=== PATIENT | female | born 1960 | race Hispanic/Latino ===

== ENCOUNTER 2022-02-02 14:58 | Emergency (ER) | payer OTHER, SELFPAY ==
[2022-02-02 15:08] VITALS: BP 108/51; PULSE 86; RESP 16; TEMP 36.8; O2SAT 99
--- NOTE | 2022-02-02 15:08 | ED.URI ---
HPI - URI/Sore Throat General Chief Complaint: Upper Respiratory Infection Stated Complaint: sore throat Time Seen by Provider: 02/02/22 15:09 Source: patient and RN notes reviewed Mode of arrival: ambulatory Limitations: no limitations History of Present Illness HPI Narrative: 61 y/o female presented for c/o sore throat x2-3 days. Endorses cough worse at night. Denies sinus pain/congestion, n/v/d/f/c. Received covid booster 2 days ago. Denies sick contacts. Hx DM. Not takin anything for symptoms. MD elicited complaint: cough and sore throat Related Data Home Medications Medication Instructions Recorded Confirmed blood sugar diagnostic [OneTouch 02/02/22 02/02/22 Verio test strips] glipizide 10 mg PO DAILY 02/02/22 02/02/22 lancets [OneTouch Delica Plus 02/02/22 02/02/22 Lancet] metformin 1,000 mg PO BID 02/02/22 02/02/22 pioglitazone 15 mg PO DAILY 02/02/22 02/02/22 pravastatin 40 mg PO DAILY 02/02/22 02/02/22 Allergies Allergy/AdvReac Type Severity Reaction Status Date / Time No Known Allergies Allergy Verified 02/02/22 15:00 Review of Systems Review of Systems: CONSTITUTIONAL:denies malaise, chills, sweats, fever EYES: Denies visual changes, redness, or discharge ENT: Reports rhinorrhea, sore throat denies congestion, sinus pain, otalgia, CARDIOVASCULAR: Denies chest pain, palpitations, edema RESPIRATORY: Reports cough, post nasal drainage. Denies dyspnea GASTROINTESTINAL: Denies abdominal pain, nausea, vomiting, diarrhea SKIN: Denies rash or itching MUSCULOSKELETAL: denies myalgia NEUROLOGIC: Denies headache Exam Narrative: GENERAL: Ill-appearing, nontoxic HEAD: Normocephalic EYES: conjunctivae clear ENT: Mucous membranes moist. TM pearly benito with dull light reflex bilaterally; left TM with circular hole; no pain or drainage; no tragal tenderness. Oropharynx erythematous without lesions or exudate, no drooling, no hoarseness, no trismus, uvula midline. No tripod positioning, muffled voice, soft palate or pharyngeal wall bulging NECK: Supple. No lymphadenopathy CHEST: Clear to auscultation, breath sounds equal. No wheezing, rhonchi, rales, or stridor. No respiratory distress, speaks in full sentences. HEART: Regular rate and rhythm. No murmur heard. SKIN: Warm, dry, no rash. NEURO: Alert and oriented x3. PSYCH: Normal mood and affect Course Course Emergency Course: Patient is aware of diagnosis, understands and agrees to treatment plan. Anticipatory guidance given. Patient agrees to follow-up as directed and is aware of reasons to seek care at the emergency department. Portions of this record may have been created with voice recognition software Level of Care: Express Care Visit Vital Signs Vital signs: Vital Signs Temperature 98.3 F 02/02/22 15:08 Pulse Rate 86 02/02/22 15:08 Respiratory Rate 16 02/02/22 15:08 Blood Pressure 108/51 L 02/02/22 15:08 Pulse Oximetry 99 02/02/22 15:08 Temperature 98.3 F 02/02/22 15:08 Pulse Rate 86 02/02/22 15:08 Respiratory Rate 16 02/02/22 15:08 Blood Pressure 108/51 L 02/02/22 15:08 Pulse Oximetry 99 02/02/22 15:08 reviewed MDM - URI/Sore Throat MDM Narrative Medical decision making narrative: strep positive. No apparent tonsillar abscess or soft palate edema. Pt is appropriate for out pt treatment and f/u. Differential Diagnosis Differential diagnosis: Likely upper respiratory infection, sinusitis, viral infection and pharyngitis Lab Data Attestation: I reviewed the patient's lab results. Labs: Strep Screen Positive Group A Strep *(Reference Range: Negative)* Discharge Plan Discharge Clinical Impression: Strep pharyngitis Patient Disposition: Home, Self-Care Condition: Stable Instructions: Antibiotic Form, Strep Throat (ED) Additional Instructions: -Take the medication as prescribed. Throw away the toothbrush after 24hours of antibiotic. -You
== END 2022-02-02 15:36 | disposition home or self-care (01) ==
PROVIDERS: Emergency Provider Nurse Practitioner Family
DX: J02.0 Streptococcal pharyngitis (principal)
CPT/HCPCS: 87880; 99213; G0463

== ENCOUNTER 2024-10-13 14:37 | Emergency (ER) | payer MEDICARE, SELFPAY ==
[2024-10-13 15:05] VITALS: BP 129/66; PULSE 79; RESP 16; TEMP 37.2; O2SAT 99
[2024-10-13 15:08] LABS: EDUAAPPEAR Clear; EDUABILI Negative (Negative); EDUABLOOD 2+ (Negative); EDUACOLOR1 Yellow; EDUAGLUCOSE Negative (Negative); EDUAKETONE Negative (Negative); EDUALEUKO 2+ (Negative); EDUANITRATE Negative (Negative); EDUAPH 5.5; EDUAPROTEIN Negative (Negative); EDUASPGRAVITY 1.005; EDUAUROBILI 0.2
--- NOTE | 2024-10-13 15:24 | ED_ITS ---
HPI - Female Genitourinary General Chief complaint: Urogenital-Female Stated complaint: urinary issue Time Seen by Provider: 10/13/24 15:10 Source: patient Mode of arrival: ambulatory Limitations: no limitations History of Present Illness HPI Narrative: 64-year-old female presents with complaint of urinary frequency, urgency, dysuria for 3 days. Had low back pain yesterday but has resolved. Denies nausea vomiting. Afebrile. All systems reviewed and negative except as noted above. Related Data Home Medications Medication Instructions Recorded Confirmed blood sugar diagnostic (OneTouch 02/02/22 10/13/24 Verio test strips) glipizide 10 mg tablet 10 mg PO DAILY 02/02/22 10/13/24 lancets 33 gauge (OneTouch Delica 02/02/22 10/13/24 Plus Lancet) metformin 1,000 mg tablet 1,000 mg PO BID 02/02/22 10/13/24 pioglitazone 15 mg tablet 15 mg PO DAILY 02/02/22 10/13/24 pravastatin 40 mg tablet 40 mg PO DAILY 02/02/22 10/13/24 Allergies Allergy/AdvReac Type Severity Reaction Status Date / Time No Known Allergies Allergy Verified 10/13/24 14:58 Review of Systems Review of Systems: CONSTITUTIONAL: Denies fever, chills, or sweats. EYES: Denies visual changes, redness, or discharge. ENT: Denies rhinorrhea, congestion, sore throat, or otalgia. CARDIOVASCULAR: Denies chest pain, palpitations, or edema. RESPIRATORY: Denies cough or dyspnea. GASTROINTESTINAL: Denies abdominal pain, nausea, vomiting, or diarrhea. GENITOURINARY: Reports dysuria, frequency, urgency. Denies hematuria. SKIN: Denies rash or itching. MUSCULOSKELETAL: Denies back pain, joint pain, or myalgia. NEUROLOGIC: Denies headache, numbness, or weakness. PSYCHIATRIC: Denies anxiety or depression. All other systems reviewed are negative, except as documented in HPI. PMFSH Comments At time of signature, agree with nursing past medical, surgical, social and family history. There is no relevant family history pertinent to the presenting complaint. Exam Narrative: GENERAL: This is a well-nourished, well-developed patient, in no apparent distress. HEAD: normocephalic, atraumatic. EYES: PERRL. Sclera clear/white. Vision is grossly intact. EARS: External ears normal NOSE: External nose normal NECK: Neck supple, non-tender without lymphadenopathy, masses or thyromegaly. CARDIOVASCULAR: Regular rate and rhythm without murmurs, gallops, or rubs. RESPIRATORY: Clear to auscultation. Breath sounds equal bilaterally. No wheezes, rales, or rhonchi. SKIN: warm, Dry, intact with no suspicious lesions or rash, good texture and turgor. NEURO: awake, alert, and oriented to person, place and time. There were no obvious focal neurologic abnormalities. EXTREMITIES: No joint tenderness, effusion, or edema noted. Course Course Level of Care: Express Care Visit Vital Signs Vital signs: Vital Signs Temperature 37.2 C 10/13/24 15:05 Pulse Rate 79 10/13/24 15:05 Respiratory Rate 16 10/13/24 15:05 Blood Pressure 129/66 10/13/24 15:05 Pulse Oximetry 99 10/13/24 15:05 Oxygen Delivery Room Air 10/13/24 15:05 Temperature 37.2 C 10/13/24 15:05 Pulse Rate 79 10/13/24 15:05 Respiratory Rate 16 10/13/24 15:05 Blood Pressure 129/66 10/13/24 15:05 Pulse Oximetry 99 10/13/24 15:05 Oxygen Delivery Room Air 10/13/24 15:05 Reviewed MDM - Female Genitourinary MDM Narrative Medical decision making narrative: urinalysis positive leukocytes and blood. Will treat for urinary tract infection. patient is well-appearing, nontoxic. Patient is aware of diagnosis, understands and agrees to treatment plan. Anticipatory guidance given. Patient agrees to follow-up as directed and is aware of reasons to seek care at the emergency department. Portions of this record may have been created with voice recognition software Differential Diagnosis Differential diagnosis: Likely urinary tract infection Lab Data Labs: Lab Results 10/13/24 Range/Units 15:06 POC Urine Color Yellow POC Urine Clarity Clear POC Urine pH 5.5 POC Ur Specif [place] 1.005 POC Urine Protein Negative (Negative) POC Ur Glucose (UA) Negative (Negative) POC Urine Ketones Negative (Negative) POC Urine Blood 2+ (Negative) POC Urine Nitrite Negative (Negative) POC Urine Bilirubin Negative (Negative) POC Urine Urobilinogen 0.2 POC U Leukocyte Esteras 2+ (Negative) Discharge Plan Discharge Clinical Impression: Urinary tract infection Patient Disposition: Home, Self-Care Condition: Stable Instructions: Antibiotic Form, Urinary Tract Infection in Women (ED) Additional Instructions: take antibiotic as prescribed until gone. Take ibuprofen or Tylenol every 6-8 hours as needed for pain and fever. Drink at least 64 oz of water a day. Follow-up with your primary care physician if symptoms are not improving. If you have severe pain, vomiting, fever go to the ER. Prescriptions: New ciprofloxacin HCl 500 mg tablet 500 mg PO BID 7 Days Qty: 14 0RF No Action pioglitazone 15 mg tablet 15 mg PO DAILY pravastatin 40 mg tablet 40 mg PO DAILY glipizide 10 mg tablet 10 mg PO DAILY (DME) OneTouch Verio test strips Strip MISCELLANEOUS metformin 1,000 mg tablet 1,000 mg PO BID (DME) lancets [OneTouch Delica Plus Lancet] 33 gauge misc MISCELLANEOUS penicillin V potassium 500 mg tablet 500 mg PO Q12H 10 Days Qty: 20 0RF Follow-up/Referrals: PHYSICIAN NOT ON STAFF,NONSTAFF [Primary Care Provider] - Time of Disposition: 15:21
== END 2024-10-13 15:30 | disposition home or self-care (01) ==
PROVIDERS: Emergency Provider Nurse Practitioner Family
DX: N39.0 Urinary tract infection, site not specified (principal); B96.20 Unspecified Escherichia coli [E. coli] as the cause of diseases classified elsewhere
CPT/HCPCS: 81003; 87077; 87086; 87186; 99213; G0463